=== PATIENT | male | born 1970 | race Two or more races ===

== ENCOUNTER 2017-11-20 11:28 | Emergency (ER) | payer SELFPAY ==
--- NOTE | 2017-11-20 12:45 | ER Document Report ---
ED General - General Chief Complaint: Bloody Stools Stated Complaint: RECTAL BLEEDING Time Seen by Provider: 11/20/17 12:42 TRAVEL OUTSIDE OF THE [place] IN LAST 30 DAYS: No - HPI Patient complains to provider of: Bloody diarrhea Notes: Patient coming in for evaluation of bloody diarrhea. Patient states after eating dinner yesterday he had multiple bouts of bloody diarrhea approximately 6. Patient was seen at local urgent care told to come to the ER for further evaluation. Patient states he was having lower abdominal pain however at this time is not having any bleeding stabbing abdominal pain denies any fevers chills nausea vomiting diarrhea denies any recent travel. - Related Data Allergies/Adverse Reactions: No Known Allergies Allergy (Verified 11/20/17 11:29) Past Medical History - Social History Smoking Status: Former Smoker Chew tobacco use (# tins/day): No Frequency of alcohol use: None Drug Abuse: None Family History: Reviewed & Not Pertinent Patient has suicidal ideation: No Patient has homicidal ideation: No Renal/ Medical History: Denies: Hx Peritoneal Dialysis Review of Systems - Review of Systems Constitutional: No symptoms reported EENT: No symptoms reported Cardiovascular: No symptoms reported Respiratory: No symptoms reported Gastrointestinal: Rectal bleeding Genitourinary: No symptoms reported Male Genitourinary: No symptoms reported Musculoskeletal: No symptoms reported Skin: No symptoms reported Hematologic/Lymphatic: No symptoms reported Neurological/Psychological: No symptoms reported -: Yes All other systems reviewed and negative Physical Exam - Vital signs Interpretation: Normal - General General appearance: Appears well, Alert - HEENT Head: Normocephalic, Atraumatic Eyes: Normal Pupils: PERRL - Respiratory Respiratory status: No respiratory distress Chest status: Nontender Breath sounds: Normal Chest palpation: Normal - Cardiovascular Rhythm: Regular Heart sounds: Normal auscultation Murmur: No - Abdominal Inspection: Normal Distension: No distension Bowel sounds: Normal Tenderness: Nontender Organomegaly: No organomegaly - Rectal Tenderness: Yes Stool: Other - Light brown stool in rectal examination Hemorrhoids: None - Back Back: Normal, Nontender - Extremities General upper extremity: Normal inspection, Nontender, Normal color, Normal ROM , Normal temperature General lower extremity: Normal inspection, Nontender, Normal color, Normal ROM , Normal temperature, Normal weight bearing. No: Jules's sign - Neurological Neuro grossly intact: Yes Cognition: Normal Orientation: AAOx4 [place] Coma Scale Eye Opening: Spontaneous [place] Coma Scale Verbal: Oriented [place] Coma Scale Motor: Obeys Commands [place] Coma Scale Total: 15 Speech: Normal Motor strength normal: LUE, RUE, LLE, RLE Sensory: Normal - Psychological Associated symptoms: Normal affect, Normal mood - Skin Skin Temperature: Warm Skin Moisture: Dry Skin Color: Normal Course - Re-evaluation Re-evalutation: 11/20/17 20:32 Long discussion with patient at bedside and his evaluation today revealed light brown stool. Patient otherwise asymptomatic with no dizziness no chest pain no lightheadedness patient ask about cost of evaluation cost of lab test costs CAT scans. I did review differential for bloody diarrhea. Patient otherwise states he feels fine declines any lab work or any other invasive testing today as at his physical examination otherwise within normal limits. States he cannot afford any further testing on the physical examination is otherwise fine he is okay to be discharged home. Explained to patient the bland diet for the next few days return if the bleeding worsens. Discharge - Discharge Clinical Impression: Abdominal pain Qualifiers: Abdominal location: unspecified location Qualified Code(s): R10.9 - Unspecified abdominal pain Condition: Stable Disposition: HOME, SELF-CARE Instructions: Abdominal Pain ([facility]), Low Residue Diet ([facility]), Rectal Bleeding, Unclear Cause ([facility]) Additional Instructions: Your physical examination today is otherwise normal. Did not know the exact etiology of your rectal bleeding. If this occurs again I would recommend returning to ER for another evaluation. Please follow-up with your physician or the clinic provided. Take medication as prescribed. Prescriptions: Dicyclomine HCl [Bentyl 20 mg Tablet] 20 mg PO QID #40 tablet Omeprazole 20 mg PO DAILY #30 capsule.dr Forms: Return to Work
== END 2017-11-20 13:00 | disposition home or self-care (01) ==
LOC: ER 11:28
DX: R10.30 Lower abdominal pain, unspecified (principal); K92.1 Melena; R19.7 Diarrhea, unspecified; Z87.891 Personal history of nicotine dependence
CPT/HCPCS: 99283